=== PATIENT | female | born 1965 | race Caucasian/White ===

== ENCOUNTER → 2018-03-29 | Day surgery (SDC) | payer BC, OTHER ==
[~2018-03-29] MED LIST: ACETAMINOPHEN 1,000 MG/100 ML BTL IV ONE; BUPIVACAINE 0.5% W/EPI MPF 30 ML VIAL IVP ONE; CEFAZOLIN 1 Gram 1 GM/50 ML BAG IVPB ONE; DEXAMETHASONE 4 MG/ML 1ML VIAL IVP ONE; EPHEDRINE SULFATE 50 MG/ML ML IV ONE; KETOROLAC 30 MG/ML VIAL IVP ONE; LIDOCAINE 1% MDV (10MG/ML) 20ML VIAL SQ ONE; METHYLPREDNISOLONE 40MG/VIAL IM ONE; MIDAZOLAM HCL 2MG/2ML VIAL IV ONE; MORPHINE SULFATE PF 10MG/10ML VIAL IV ONE; ONDANSETRON HCL IV 4 MG/2 ML VIAL IVP ONE; PROPOFOL 10 MG/ML VIAL IV ONE; ROPIVACAINE HCL (NAROPIN) /PF 5MG/ML 20ML VIAL IV ONE; SEVOFLURANE 250 ML INH ONE
--- NOTE | 2018-03-30 05:20 | Operative Note ---
DATE OF SURGERY: 03/29/2018 PREOPERATIVE DIAGNOSIS: PERSISTENT RIGHT SHOULDER IMPINGEMENT. POSTOPERATIVE DIAGNOSES: 1. COMPLEX GLENOHUMERAL LABRAL TEAR, RIGHT SHOULDER. 2. PROFOUND RIGHT SHOULDER EXTERNAL IMPINGEMENT. 3. RIGHT SHOULDER ARTHROSIS AT THE DISTAL CLAVICLE. PROCEDURE: 1. RIGHT SHOULDER ARTHROSCOPY WITH INTRA-ARTICULAR DEBRIDEMENT. 2. RIGHT SHOULDER OPEN ACROMIOPLASTY, CA LIGAMENT RESECTION, AND SUBACROMIAL BURSECTOMY. 3. RIGHT SHOULDER DISTAL CLAVICLE RESECTION. STAFF SURGEON: SUSANNA JUNG M.D. ANESTHESIA: GENERAL. PREPARATION: CHLORAPREP. INDIVIDUAL CONSIDERATIONS: NONE. PROCEDURE: The patient was taken to the Operating Room and placed supine on the operating table. She had a successful induction of a general anesthetic. She was then placed in a semi-seated beach chair position and her right arm and shoulder were prepped and draped in the usual fashion. The patient had posterior portal identified for arthroscopy. Skin was infiltrated with 0.5% Marcaine with Epinephrine prior. An #18-gauge spinal needle was easily placed in the joint and the joint was inflated with normal saline with a 30 mL syringe. A stab wound was made and a blunt-tipped trocar for the scope was placed in the joint and the joint was inflated with normal saline. An anterior accessory portal was then made just inferior to the intact long head of the biceps tendon in a retrograde fashion with a Wissinger vaughn and the joint was irrigated out. The patient's glenohumeral joint was absolutely normal. Minimal synovitis. She had fraying of the labrum from, I would say, the 10 to the 1 o'clock position with multiple unstable flaps especially anteriorly. This was debrided back to a stable rim with a shaver. The long head attachment was intact and the glenohumeral joint was normal. Subscap tendon was normal. No loose bodies were seen in the inferior pouch and the rotator cuff underneath looked, at this point, pretty good. After irrigation, portals were closed with campos. The patient had an anterior approach to the subacromial space and distal clavicle. The skin was again infiltrated with 0.5% Marcaine with Epinephrine prior. Sharp dissection was carried down through the skin and subcutaneous tissues. Small veins were coagulated with a Bovie. An anterior deltoid interval was developed and care was taken not to split the deltoid more than about 4 cm distal to the anterior tip of the acromion to prevent injury to the axillary nerve. Once in the subacromial space, the patient had a very tight subacromial space and a tremendously hypertrophic bursa, large spurs anteriorly, and huge spurs extending from the AC joint underneath. The deltoid was then taken subperiosteally off the anterior aspect of the acromion, over the top of the intact CA ligament, off the anterior aspect of the degenerated AC joint. CA ligament was resected with a Bovie. Distal clavicle was resected with an oscillating saw taking about a centimeter. The patient then had an anterior acromioplasty taking primarily spurs anteriorly and tapering to wedge posteromedially to include the spurs at the AC joint. The undersurface was smoothed off with a rasp. The patient had an extremely thick bursa and this was all debrided out. I now had a good look at the rotator cuff. At the supraspinatus, there was a small area that looked like a partial tear but certainly nothing to repair. After irrigation, The deltoid was reattached to the remaining acromion with multiple interrupted #2 Vicryl. The anterior deltoid interval was closed with a running #1 Vicryl. Periosteal cuff on the distal clavicle was closed with a running #2 Vicryl. The subcut was closed with 2-0 plus Vicryl, skin was closed with a running 3-0 quill, and reinforced with Steri-Strips. The patient had about 15 mL of 0.5% Marcaine with Epinephrine along with 10 mg of Morphine and 40 mg of DepoMedrol injected into the subacromial space through a sterile #18-gauge needle and a sterile Bulkee compressive dressing and sling were applied. The patient tolerated the procedure well. Needle and sponge counts were correct. Estimated blood loss was minimal and she was taken back to Recovery in good condition. There were no complications. JOB NUMBER: [id number] MTDD
== END | disposition home or self-care (01) ==
LOC: SUR 06:54
PROVIDERS: ATTEND Orthopaedic Surgery
DX: S43.431A Superior glenoid labrum lesion of right shoulder, initial encounter (principal); M19.011 Primary osteoarthritis, right shoulder
CPT/HCPCS: 29822; 23120; 23130; 01630; 81025; J0690; J1030; J1885; J2405